=== PATIENT | female | born 1995 | race African-American/Black ===

== ENCOUNTER 2016-06-20 15:06 | Emergency (ER) | payer MEDICAID ==
[~2016-06-20] VITALS: Ht 149.9 cm; Wt 56.8 kg
[2016-06-20 15:19] VITALS: BP 114/74
[2016-06-20 16:44] LABS: PATH.CAST-FLAG NOT PRESENT; SPERM-FLAG NOT PRESENT; SRC-FLAG NOT PRESENT; XTAL-FLAG NOT PRESENT; YLC-FLAG NOT PRESENT
[2016-06-20 16:51] LABS: HCG UR OBC PASS
[2016-06-20] MEDS ORDERED: metroNIDAZOLE 500 MG TABLET ONE (17:24)
[2016-06-20] MEDS ORDERED: FLUCONAZOLE 100 MG TABLET PO ONE (17:30)
[2016-06-20] MEDS ORDERED: metroNIDAZOLE 500 MG TABLET PO ONE (17:30)
== END 2016-06-20 19:01 | disposition home or self-care (01) ==
LOC: ED 18:37
DX: N89.8 Other specified noninflammatory disorders of vagina (principal); Z87.440 Personal history of urinary (tract) infections
CPT/HCPCS: 81001; 81025; 87086; 87491; 87591; 99284

== ENCOUNTER 2016-07-01 09:42 | Emergency (ER) | payer SELFPAY ==
[~2016-07-01] VITALS: Ht 149.9 cm; Wt 58.0 kg
[2016-07-01 12:42] LABS: PATH.CAST-FLAG NOT PRESENT; SPERM-FLAG NOT PRESENT; SRC-FLAG NOT PRESENT; XTAL-FLAG NOT PRESENT; YLC-FLAG NOT PRESENT
[2016-07-01 12:58] VITALS: BP 114/73
== END 2016-07-01 13:38 | disposition home or self-care (01) ==
LOC: ED 11:46
DX: N30.00 Acute cystitis without hematuria (principal); N76.0 Acute vaginitis
CPT/HCPCS: 81001; 87070; 87086; 87205; 87210; 87491; 87591; 87808; 99284